=== PATIENT | male | born 1950 | race Caucasian/White ===

== ENCOUNTER 2017-12-23 08:54 | Day surgery (SDC) | payer MEDICARE, BC ==
[2017-12-23] VITALS (15 sets, daily range): BP systolic 158–180; BP diastolic 78–107
[2017-12-23] MEDS ORDERED: PRED5TAB PO (09:40)
[2017-12-23] MEDS ORDERED: CHOL10002 PO (09:40)
[2017-12-23] MEDS ORDERED: PANT-47 PO (09:40)
[2017-12-23] MEDS ORDERED: LEVO75TA PO (09:40)
[2017-12-23] MEDS ORDERED: ASCO500C15 PO (09:40)
[2017-12-23] MEDS ORDERED: UBID100C16 PO (09:40)
[2017-12-23] MEDS ORDERED: AZAT50TA35 PO (09:40)
[2017-12-23] MEDS ORDERED: MULT1TAB74 PO (09:40)
[2017-12-23] MEDS ORDERED: OMEG-42 PO (09:40)
[2017-12-23 10:35] LABS: BASOPHILS # (AUTO) 0.1 X10'3 (0-0.2); BASOPHILS % (AUTO) 0.7 % (0-1); EOSINOPHILS # (AUTO) 0.2 X10'3 (0-0.9); EOSINOPHILS % (AUTO) 1.9 % (0-6); HEMATOCRIT 40.2 % (42.0-52.0); HEMOGLOBIN 13.7 g/dl (14.0-17.9); LYMPHOCYTES # (AUTO) 1.4 X10'3 (1.1-4.8); LYMPHOCYTES % (AUTO) 16.8 % (21-51); MEAN CORPUSCULAR HEMOGLOBIN 31.4 PG (27.0-31.0); MEAN CORPUSCULAR HGB CONC 34.1 % (33.0-36.5); MEAN CORPUSCULAR VOLUME 92.3 FL (78-98); MEAN PLATELET VOLUME 8.1 FL (7.4-10.4); MONOCYTES % (AUTO) 12.1 % (2-12); NEUTROPHILS # (AUTO) 5.5 X10'3 (1.8-7.7); NEUTROPHILS % (AUTO) 68.5 % (42-75); PLATELET COUNT 105 X10'3 (140-440); RED BLOOD COUNT 4.36 X10'6 (4.70-6.10); RED CELL DISTRIBUTION WIDTH 14.3 % (11.5-14.5); WHITE BLOOD COUNT 8.1 X10'3 (4.5-11.0)
[2017-12-23 10:44] LABS: PROTHROMBIN TIME 10.6 SECONDS (9.0-12.0)
[2017-12-23] MEDS: normal saline 1000ml 1,000 ML IV SCH (11:17)
[2017-12-23] MEDS: MIDAZolam 5mg/ml 2ml vial IV ONE (12:00)
[2017-12-23] MEDS: fentaNYL/PF 50MCG/1 ML 2ML syringe IV ONE (12:00)
[2017-12-23] MEDS ORDERED: HYDROcodone/acetaminophen 5mg/325mg tablet PO PRN ×2 (12:15)
== END 2017-12-23 15:20 | disposition home or self-care (01) ==
LOC: SSTAY O 08:54
PROVIDERS: ATTEND Radiology Diagnostic Radiology
DX: B18.2 Chronic viral hepatitis C (principal); I10 Essential (primary) hypertension; L71.9 Rosacea, unspecified; Z90.49 Acquired absence of other specified parts of digestive tract; Z96.642 Presence of left artificial hip joint; Z98.890 Other specified postprocedural states; Z79.899 Other long term (current) drug therapy
CPT/HCPCS: 36415; 47000; 85025; 85610; J7030; 88307; 88313; J2250; J3010